=== PATIENT | male | born 1990 | race Hispanic/Latino ===

== ENCOUNTER 2022-03-25 11:06 | Emergency (ER) | payer SELFPAY ==
[2022-03-25] MEDS ORDERED: Lidocaine 4% Cream 5 GM TUBE w/ Tegaderm ONE (14:09)
[2022-03-25] MEDS ORDERED: Lidocaine 1% w/Epinephrine 1:100K 20 ML VIAL ONE (14:09)
[2022-03-25] MEDS ORDERED: Morphine 4 MG/ML VIAL ONE (14:44)
== END 2022-03-25 15:44 | disposition home or self-care (01) ==
LOC: ERS 11:06
DX: L02.01 Cutaneous abscess of face (principal); L03.211 Cellulitis of face
CPT/HCPCS: 10060; 96372; J2270